=== PATIENT | male | born 1945 | race Hispanic/Latino ===

== ENCOUNTER → 2024-09-29 | Outpatient (CLI) | payer OTHER ==
[~2024-09-29] MED LIST: DILT300C54 PO; FINA5TAB41 PO; NIAC500T7 PO; TAMS-1 PO
--- NOTE | 2024-09-29 08:31 | HMCIMG ---
Exam Type: US RENAL SONOGRAM Clinical Information: abn renal lab results Comparison: None Findings: The kidneys are hyperechoic consistent with renal parenchymal disease. There are no calculi. No hydronephrosis or calculi are seen. No renal masses are seen. There is no evidence of perinephric fluid on either side. No evidence of significant ureteral dilatation is seen. The right kidney measures 9.5 x 4.3 cm. The left kidney measures 9.3 x 4.9 cm. The urinary bladder is normal. No bladder masses, stones, or wall thickening is seen. The prostate is significantly enlarged. It measures 92 cc in volume. 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 Significant prostatomegaly.
== END | disposition home or self-care (01) ==
LOC: RAH 07:34
PROVIDERS: ATTEND Internal Medicine
DX: N40.0 Benign prostatic hyperplasia without lower urinary tract symptoms (principal); R94.4 Abnormal results of kidney function studies; N18.32 Chronic kidney disease, stage 3b
CPT/HCPCS: 76770